=== PATIENT | female | born 2000 | race Caucasian/White ===

== ENCOUNTER 2025-10-27 16:13 | Emergency (ER) | payer BC, SELFPAY ==
--- NOTE | ~2025-10-27 | CT_ITS ---
CLINICAL HISTORY: RLQ Abdominal Pain CT abdomen and pelvis with contrast Comparison: None provided Findings: No consolidation or effusion. Liver, gallbladder, pancreas, spleen, and adrenal glands are within normal limits. Mild right hydronephrosis with 4 mm calculus in the proximal right ureter. Additional nonobstructing calculus in the lower pole of the right kidney. No hydronephrosis or urolithiasis in the left kidney. Moderate stool burden. No bowel obstruction, pneumatosis or pneumoperitoneum. Pelvic contents unremarkable. Normal appendix. The bones are intact. IMPRESSION: 1. Right ureteral calculus (4 mm) with mild hydronephrosis. 2. No other acute findings. Normal appendix. This document has been electronically signed by: Susan Cortés MD on 10/27/2025 23:04:46
[2025-10-27 17:15] VITALS: BP 173/98; PULSE 87; RESP 18; O2SAT 99; BMI 27.2
[2025-10-27 17:48] LABS: MANUAL DIFF FLAG NO
[2025-10-27 17:52] LABS: Appearance Urine Cloudy; Glucose Urine UA Negative (Negative); PH 5.5 (5.0-9.0); Specific Gravity - Urine 1.025 (1.005-1.025); UMIC TRIGGER UACC YES
--- NOTE | 2025-10-27 17:57 | ED_ITS ---
HPI - General Adult General Chief complaint: Abdominal Pain Stated complaint: abd pain Time Seen by Provider: 10/27/25 21:14 History of Present Illness ED Provider: Claudette Sloan NP HPI narrative: 25-year-old female patient presents to the ED with chief complaint of right lower quadrant abdominal pain that is been ongoing since about 11:00 a.m. this morning. Reports when she initially came to the ED pain was 10/10, causing her to cry. However, since waiting in the waiting room the pain has spontaneously resolved and become much less severe. Denies any nausea or vomiting, diarrhea or constipation. No fever, chills or recent illnesses. No chest pain or pressure, shortness of breath. Related Data Previous Rx's ?Medication ?Instructions ?Recorded acetaminophen 500 mg tablet 1,000 mg (2 x 500 mg) PO Q 8H PRN 10/27/25 fever or pain 7 days #30 tabs ibuprofen 600 mg tablet 600 mg PO Q8H PRN fever or p ain 7 10/27/25 days #20 tabs ondansetron 4 mg disintegrating 4 mg PO Q8H PRN nausea and 10/27/25 tablet vomiting #14 tabs tamsulosin 0.4 mg capsule 0.4 mg PO DAILY 14 days #14 caps 10/27/25 Allergies Allergy/AdvReac Type Severity Reaction Status Date / Time Sulfa (Sulfonamide Allergy Unknown Verified 10/27/25 17:16 Antibiotics) Review of Systems 2 Review of Systems: ROS is otherwise negative unless mentioned in HPI. PMFSH Social History Social History Smoked in Last 30 Days: No Use of substances other than those prescribed or required for medical reasons: No Advance Directives: No Advance Directives Information Provided: No Do you have a plan to hurt others: No Plan Patient : No Physical Exam ED Exam Exam: Nursing notes and vital signs reviewed. Constitutional: Well-appearing, NAD. Alert. Oriented X3. Eyes: EOMI. ENT: Pharynx normal. Neck: Normal inspection. Neck supple. CVS: Normal heart rate and rhythm. Pulses normal. Respiratory: No respiratory distress. Breath sounds normal. Abdomen: Soft, nontender, nondistended. Skin: Skin warm and dry. Normal skin color. Extremities: No lower extremity edema. Neuro: Oriented X 3. No motor deficit. Vital Signs: Vital Signs - 24 hr 10/27/25 17:15 10/27/25 21:36 10/27/25 23:30 Temperature 98.0 F Pulse Rate 87 81 72 Respiratory Rate 18 16 16 Blood Pressure 173/98 H 144/97 H 128/87 Pulse Oximetry 99 99 99 Oxygen Delivery Method Room Air Room Air Room Air BMI result Body Mass Index 27.2 Course Course Course Narrative: RME; 25 yod female presents to the ED For RLQ pain sicne 11am. labs UA ordered Medications Administered Discontinued Medications Generic Name Dose Route Start Last Admin Trade Name Fresylvia PRN Reason Stop Dose Admin Sodium Chloride 1,000 mls @ 999 mls/hr 10/27/25 21:24 10/27/25 22:51 Ns IV 10/27/25 22:24 Infused .Q1H1M ONE Infusion Iohexol 85 ml 10/27/25 22:14 10/27/25 22:16 Iohexol 350 Mg/Ml 100 Ml Infus..Btl IV 10/27/25 22:15 85 ml ONCE ONE Administration Morphine Sulfate 4 mg 10/27/25 21:24 10/27/25 21:50 Morphine Sulfate 4 Mg/Ml Cartridge IVPUSH 10/27/25 21:25 4 mg ONCE ONE Administration Protocol Ondansetron HCl 4 mg 10/27/25 21:24 10/27/25 21:50 Ondansetron Hcl 4 Mg/2 Ml Vial IVPUSH 10/27/25 21:25 4 mg ONCE ONE Administration Medical Decision Making Medical Decision Making [facility] Narrative: 9:27 PM 10/27/2025 (Claudette Sloan NP): I evaluated her, she overall appears well. I found her sitting in the chair in the room, she was able to ambulate independently into the stretcher. Her abdominal exam is mostly benign. She complains of right lower quadrant abdominal pain and expresses concern for appendicitis. Reports that around 11:00 a.m. for pain was most severe, then spontaneously resolved. This is concerning for possible rupture though her vital signs have remained stable and therefore this is unlikely. Higher suspicion for mesenteric adenitis. She has mild leukocytosis at 12.2, which is likely reactive. LFTs, lipase are normal. Urine shows blood, she is currently on her menses. We will obtain CT imaging of the abdomen, pelvis, administer medications and reassess. 11:17 PM: CT shows evidence of a right ureteral calculus measuring 4 mm with mild hydronephrosis. The urine sample shows large blood, trace leuks, not concerning for infection. No indication for antibiotics. Over this does explain the blood as well as that she is on her menses. Her creatinine is normal at 0.82. We will discharge home with outpatient urology follow up, as well as pain control, antiemetic, Flomax. Patient, her father are agreeable to discharge plan. Given return precautions to the ED. Differential Diagnosis Differential Diagnoses: The differential diagnosis associated with the presentation includes Appendicitis, ruptured appendicitis, mesenteric adenitis Admission/Observation Consideration of admission/observation: Escalation of care including admission/observation considered (Not indicated) Lab Data MDM Lab Attestation statement: I reviewed the patient's lab results. (Overall reassuring) 10/27/25 17:43 10/27/25 17:43 Labs: Lab Results 10/27/25 Range/Units 17:43 WBC 12.2 H (4.8-10.8) X10*3/uL RBC 4.72 (4.20-5.50) X10*6/uL Hgb 13.7 (12.0-16.0) g/dl Hct 42.1 (37.0-47.0) % MCV 89.2 (80.0-98.0) fL MCH 29.0 (27.0-33.0) pg MCHC 32.5 (31.0-35.0) g/dl RDW 12.3 (11.0-16.0) % Plt Count 388 (160-400) X10*3/uL MPV 9.8 (9.4-12.3) fL Immature Gran % (Auto) 0.5 H (0.0-0.4) % Neut % (Auto) 80.9 H (45-73) % Lymph % (Auto) 13.2 L (20-40) % [place] % (Auto) 4.3 (2-11) % Eos % (Auto) 0.5 (0-4) % Baso % (Auto) 0.6 (0-2) % Lymph # (Auto) 1.6 (1.2-4.9) X10*3/uL [place] # (Auto) 0.5 (0.1-1.2) X10*3/uL Eos # (Auto) 0.1 (0.0-0.4) X10*3/uL Baso # (Auto) 0.1 (0.0-0.2) X10*3/uL Abs Immat Gran (auto) 0.06 H (0.00-0.03) X10*3/uL Absolute Neuts (auto) 9.9 H (2.0-8.3) x10*3/uL Absolute Nucleated RBC 0.000 (0.0-0.012) X10*3/uL Nucleated RBC % (auto) 0.0 (0.0-0.2) /100WBC Sodium 139 (135-145) mmol/L Potassium 4.9 (3.3-5.1) mmol/L Chloride 105 (96-108) mmol/L Carbon Dioxide 26 (22-29) mmol/L Anion Gap 13 (12-20) BUN 8 L (9-16) mg/dL Creatinine 0.82 (0.5-1.4) mg/dL Estim Creat Clear Calc 100.2 Estimated GFR > 60 Random Glucose 98 (60-115) mg/dL Calcium 9.6 (8.4-10.2) mg/dL Total Bilirubin 0.2 (0.0-1.0) mg/dL AST 26 (5-31) U/L ALT 27 (0-31) U/L Alkaline Phosphatase 90 (39-117) U/L Total Protein 7.9 (6.5-8.0) g/dL Albumin 4.7 (3.5-5.0) g/dL Lipase 22 (8-78) U/L Beta HCG, Quant < 2 mIU/mL Urine Color Dark Yellow Urine Appearance Cloudy Urine pH 5.5 (5.0-9.0) Ur Specific [place]wood 1.025 (1.005-1.025) Urine Protein 30 (1+) H (Neg-Trace) mg/dL Urine Glucose (UA) Negative (Negative) mg/dL Urine Ketones 15 (Negative) mg/dL Urine Blood Large (3+) H (Negative) Urine Nitrite Negative (Negative) Ur Leukocyte Esterase Trace H (Negative) Urine RBC >20 H (0-2) /HPF Urine WBC 0-5 (0-5) /HPF Ur Squamous Epith Cells 3-5 (0-2) /HPF Urine Bacteria None Seen (None Seen) Hyaline Casts 3-5 (0-2) /LPF Radiology Impression Discussion of test interpretation with radiology: I have reviewed the radiologist's reading. Radiologist Impression: IMPRESSION: 1. Right ureteral calculus (4 mm) with mild hydronephrosis. 2. No other acute findings. Normal appendix. Independent Historian Clinical information obtained from an independent historian. History obtained from or confirmed by: Parent External Record Review None Chronic Conditions None Social Determinants Patient?s care significantly limited by Social Determinants of Health including: Problems related to primary support group Discharge Plan Discharge Clinical Impression: Kidney stone Patient Disposition: Home, Self-Care Instructions: How to Strain Your Urine (ED), Hydronephrosis (ED) Additional Instructions: As we discussed today, your lab work was overall reassuring. The urine sample showed signs of blood, but no signs of infection at this time. I have listed the CT scan below for your convenience and discussion with Urology outpatient. If you develop any worsening complaints, persistent nausea and vomiting, return to the ED for additional assessment. You have a right-sided kidney stone. It is causing a mild amount of swelling of the kidney. This is expected. Your lab work was reassuring. I have prescribed you a few medications as listed below for your convenience. Please take them as prescribed. Zofran: for nausea. Flomax: to aid in urination. Tylenol/Ibuprofen: for pain. IMPRESSION: 1. Right ureteral calculus (4 mm) with mild hydronephrosis. 2. No other acute findings. Normal appendix. Prescriptions: New acetaminophen 500 mg tablet 1,000 mg PO Q8H PRN (Reason: fever or pain) 7 Days Qty: 30 0RF tamsulosin 0.4 mg capsule 0.4 mg PO DAILY 14 Days Qty: 14 0RF ibuprofen 600 mg tablet 600 mg PO Q8H PRN (Reason: fever or pain) 7 Days Qty: 20 0RF ondansetron 4 mg tablet,disintegrating 4 mg PO Q8H PRN (Reason: nausea and vomiting) Qty: 14 0RF Referrals: [facility] [Provider Group, Urology] Interventions: ED Discharge Assessment Last Done: 10/27/25 23:30 Discharge Date/Time: 10/28/25 00:03 Print Language: Uzbek
[2025-10-27 18:11] LABS: Hematocrit 42.1 % (37.0-47.0); Hemoglobin 13.7 g/dl (12.0-16.0); Imm Gran Abs Auto 0.06 X10*3/uL (0.00-0.03); Imm Gran Pct Auto 0.5 % (0.0-0.4); Lymphocytes Absolute Auto 1.6 X10*3/uL (1.2-4.9); Mean Corpuscular HGB Conc 32.5 g/dl (31.0-35.0); Mean Corpuscular Hemoglobin 29.0 pg (27.0-33.0); Mean Corpuscular Volume 89.2 fL (80.0-98.0); NRBC Abs Auto 0.000 X10*3/uL (0.0-0.012); NRBC Pct Auto 0.0 /100WBC (0.0-0.2); Platelet Count 388 X10*3/uL (160-400); Red Blood Count 4.72 X10*6/uL (4.20-5.50); White Blood Count 12.2 X10*3/uL (4.8-10.8)
[2025-10-27 18:12] LABS: Alanine Aminotransferase 27 U/L (0-31); Albumin Level 4.7 g/dL (3.5-5.0); Alkaline Phosphatase 90 U/L (39-117); Anion Gap 13 (12-20); Aspartate Amino Transferase 26 U/L (5-31); Blood Urea Nitrogen 8 mg/dL (9-16); Calcium 9.6 mg/dL (8.4-10.2); Carbon Dioxide 26 mmol/L (22-29); Chloride 105 mmol/L (96-108); Creatinine Clr Calc Pharmacy 100.2; Estimated Glomerular Filt Rate > 60; Lipase 22 U/L (8-78); Potassium 4.9 mmol/L (3.3-5.1); Sodium 139 mmol/L (135-145); Total Protein 7.9 g/dL (6.5-8.0)
--- OUTSIDE RECORDS SUMMARY | 2025-10-27 20:23 | XMS_ITS | Clinical Summary ---
Author Organization [facility] Address [address] [place] [id number] Phone Care Team Providers Care Investigator Vice Name Role Phone Keiry Burkett NP Primary Care Provider Social History Tobacco Use Types Packs/Day Years Used Date Smoking Tobacco: Never Assessed Education Answer Date Recorded Are you interested in more education? Not on is[place] e 03/09/2023 Are you concerned about learning? Not on file 03/09/2023 No 03/09/2023 No 03/09/2023 Digital Access Answer Date Recorded No 04/06/2023 No 04/06/2023 No 04/06/2023 Reliable internet access at home? Not on file 04/06/2023 Device with a working camera? Not on file Comments Unknown Sex and Gender Information Value Date Recorded Sex Assigned at Female 10/29/2024 9:13 AM EST Legal Sex Female 8:48 PM EDT Gender Identity Female 10/29/2024 9:13 AM EST Sexual Orientation Lesbian or Roblero 10/29/2024 9: 13 AM EST Plan of Treatment Health Maintenance Due Date Last Done Comments DEPRESSION SCREENING 2010 SMOKING Hx and SMOKELESS TOBACCO SCREENING 2011 HEPATITIS C SCREENING 2016 HIV ONE-TIME SCREENING (18-65 YEARS) 2016 INFLUENZA VACCINE (#1) 2025 6, 11/27/2012, 09/08/2011, Additional history exists COVID-19 VACCINE ( season) 2025 03/12/2021, 02/11/2021 PAP SMEAR 05/05/2027 05/05/2024, 08/22/2021 Adult Td,Tdap Booster 05/27/2031 05/27/2021, 010 HIB VACCINES Completed 11/08/1999, 02/11, 01/24/1999, Additional history exists PNEUMOCOCCAL VACCINES (0-49 years) Aged Out 08/09/2000 No longer eligible based on patient's age to complete this topic MENINGOCOCCAL VACCINES (ACWY) Completed 02/18/2016, 11/02/2010 MENINGOCOCCAL VACCINES (B) Completed 12/11/2017, HEPATITIS A VACCINES Aged Out No long er eligible based on patient's age to complete this topic Medical Devices Not on file Procedures Procedure Name Priority Date/Time Associated Diagnosis Comments PAP TEST Routine 05/05/2024 12:00 AM EDT from Last 3 Months or Most Recently Relevant to Health Maintenance Results * Pap Test (05/05/2024 12:00 AM EDT) Report [address] [address] [place] Retreader: Mary Donnelly MD PERSONAL VEHICLE ADVISOR Cytology Report FINAL DIAGNOSIS A. PAP SMEAR (THIN PREP) CE: SPECIMEN ADEQUACY: Satisfactory for evaluation; transformation zone present. INTERPRETATION: NEGATIVE FOR INTRAEPITHELIAL LESION OR MALIGNANCY. This specimen was analyzed by the automated ThinPrep Imaging System (LIFT12.) and manually rescreened by a chief of staff and/or pathologist. Electronically Signed Out By: MIRLANDE Soria(ASCP) The Pap test is a screening test primarily for squamous cancers and precursors and has associated false-negative and false-positive results. New technologies such as liquid-based preparations may decrease but will not eliminate all false-negative results. Regular sampling and follow-up of unexplained clinical signs and symptoms are recommended to minimize false negative results. CLINICAL HISTORY Date of Last Menstrual Period: Not Provided Menstrual History: No LMP given Other Clinical Conditions: Screening Pap SPECIMEN SOURCE A: PAP SMEAR (THIN PREP) CE Patient Name: SANTOS SÁNCHEZ : 2000 (Age: 23) Sex: F Institution: [facility] Location: [facility] Date of Collection: 05/05/2024 Date of Reported: 05/09/2024 15:54 Results to: Keiry Burkett ADJUNCT PROFESSOR OF ENGLISH [facility] Final Diagnosis A. PAP SMEAR (THIN PREP) CE: SPECIMEN ADEQUACY: Satisfactory for evaluation; transformation zone present. INTERPRETATION: NEGATIVE FOR INTRAEPITHELIAL LESION OR MALIGNANCY. This specimen was analyzed by the automated ThinPrep Imaging System (LIFT12.) and manually rescreened by a chief of staff and/or pathologist. [facility] Conversion Type (Conversion Source) 05/05/2024 05/06/2024 10:35 AM EDT us Keiry Burkett HALVER MACHINE OPERATOR CYTOLOGY ORDERABLES Edited R esult - Final Performing Organization Address City/State/[place] Co de Phone Number [address] [phone] from Last 3 Months or Most Recently Relevant to Health Maintenance Insurance [facility] PPO EPO [facility] PPO EPO [facility] PPO [facility]PO [facility] PPO EPO [facility] PPO EPO [facility] PPO EPO Care Teams Investigator Vice Relationship Specialty Start Date End Date Keiry Burkett NP [address] [place] [phone] PCP - General Nurse Practitioner 08/25/24 Additional Source Comments The information contained in this document represents components of the legal health record. It is not the complete legal health record.[facility]
--- OUTSIDE RECORDS SUMMARY | 2025-10-27 20:23 | XMS_ITS | Encounter Summary ---
Author Organization [facility] Address [address] [place] [phone] Phone Care Team Providers Care Creative Arts Therapist Name Role Phone Bruna Richards Primary Care Provider [phone] Keiry Burkett NP Primary Care Provider Encounter Details Date Type Department Care Team (Late st Contact Info) Description 08/12/2024 Transcribe Orders [facility] [address] [place] [phone] Keiry Burkett NP [address] [place] [phone] Social History Tobacco Use Types Packs/Day Years [...] or Roblero 10/29/2024 9: 13 AM EST documented as of this encounter Plan of Treatment Not on file documented as of this encounter Visit Diagnoses Not on filedocumented in this encounter Care Teams Creative Arts Therapist Relationship Specialty Start Date End Date Bruna Richards PA [address] [place] [phone] PCP - General Marketing Information Coordinator 08/03/22 08/24/24 Keiry Burkett NP [address] [place] [phone] PCP - General Nurse Practitioner 08/25/24 documented as of this encounter Additional Source Comments The information contained in this document represents components of the legal health record. It is not the complete legal health record.[facility]
[2025-10-27 21:36] VITALS: BP 144/97; PULSE 81; RESP 16; O2SAT 99
[2025-10-27] MEDS: iohexoL 350 MG/ML 100 ML INFUS..BTL 85 ML IV (22:16)
[2025-10-27 23:30] VITALS: BP 128/87; PULSE 72; RESP 16; TEMP 36.7; O2SAT 99
== END 2025-10-28 00:03 | disposition home or self-care (01) ==
PROVIDERS: Physician Assistant; Emergency Provider Emergency Medicine; PCP Registered Nurse
DX: N20.0 Calculus of kidney (principal); R10.31 Right lower quadrant pain
CPT/HCPCS: 36415; 74177; 80053; 81001; 83690; 84702; 85025; 96361; 96374; 96375; 99284; 99285; J2270; J2405; Q9967

== ENCOUNTER → 2025-10-27 21:24 | Outpatient (BNV) | payer BC, SELFPAY | PROVIDERS: Emergency Provider Emergency Medicine; PCP Registered Nurse; Visit Provider Radiology Diagnostic Radiology | DX: N20.0 Calculus of kidney (principal) | CPT/HCPCS: 74177 ==